=== PATIENT | female | born 1985 | race Caucasian/White ===

== ENCOUNTER → 2021-11-02 | Outpatient (CLI) | payer OTHER ==
[~2021-11-02] MED LIST: ANAPROX DS550 MG PO
[2021-11-02 15:26] LABS: CREATININE 1.27 mg/dL (0.55-1.02); POTASSIUM 4.6 mmol/L (3.5-5.1)
== END ==
LOC: LAB 14:57
PROVIDERS: ATTEND Internal Medicine
DX: U07.1 COVID-19 (principal)

== ENCOUNTER → 2024-07-23 | Outpatient (CLI) | payer OTHER | END | disposition home or self-care (01) | LOC: US 09:30 | PROVIDERS: ATTEND Nurse Practitioner | DX: R19.00 Intra-abdominal and pelvic swelling, mass and lump, unspecified site (principal) ==